=== PATIENT | female | born 1975 | race African-American/Black ===

== ENCOUNTER 2018-04-05 18:21 | Emergency (ER) | payer BC ==
[~2018-04-05] VITALS: Ht 167.6 cm; Wt 90.0 kg
[2018-04-05 20:42] LABS: BASOPHILS % 0.3 % (0.0-2.0); EOSINOPHILS % 1.5 % (0.0-5.0); HEMATOCRIT. 40.3 % (36.0-48.0); HEMOGLOBIN. 13.6 g/dL (12.0-16.0); LYMPHOCYTES % 19.1 % (20.0-50.0); MEAN CORPUSCULAR HEMOGLOBIN 29.9 pg (28.0-32.0); MEAN CORPUSCULAR VOLUME 88.8 fL (81.0-99.0); MEAN PLATELET VOLUME 7.7 fl (7.4-10.4); MONOCYTES % 6.6 % (2.0-8.0); NEUTROPHILS % 72.5 % (40.0-76.0); PLATELET 424 x1000/uL (130-400); RED BLOOD CELL COUNT 4.54 mill/uL (4.2-5.4); RED CELL DISTRIBUTION WIDTH 13.4 % (11.6-14.6)
[2018-04-05 20:48] LABS: CHLORIDE 106 mEq/L (98-107)
[2018-04-05 20:57] LABS: HCG SCREEN NEGATIVE
[2018-04-05] MEDS ORDERED: SODIUM CHLORIDE 0.9% 1,000 ML IV ONE (22:06)
[2018-04-05] MEDS ORDERED: LORAZEPAM 2MG/ML CPJ IV ONE (22:15)
[2018-04-06] VITALS: BP 118/70
== END 2018-04-06 | disposition home or self-care (01) ==
LOC: ER 18:21
DX: F41.1 Generalized anxiety disorder (principal); I10 Essential (primary) hypertension; R94.31 Abnormal electrocardiogram [ECG] [EKG]
CPT/HCPCS: 36415; 70450; 71045; 80048; 84443; 84484; 84703; 85025; 85379; 93005; 96361; 96374; 99285; J2060; J7030; Z7610